=== PATIENT | male | born 1980 | race Caucasian/White ===

== ENCOUNTER 2022-10-19 00:12 | Emergency (ER) | payer OTHER ==
[2022-10-19] MEDS ORDERED: Sodium Chloride 0.9% 10 ML Syringe FLUSH PRN (03:33)
[2022-10-19] MEDS ORDERED: Sodium Chloride 0.9% 2.5 ML Syringe FLUSH PRN (03:33)
[2022-10-19] MEDS ORDERED: HYDROmorphone 2 MG/ML Syringe IVPUSH ONE (03:35)
[2022-10-19] MEDS ORDERED: Ketorolac 30 MG/ML SDV IVPUSH ONE (03:36)
[2022-10-19] MEDS ORDERED: Ondansetron 4 MG/2 ML SDV IVPUSH ONE (03:36)
[2022-10-19 04:38] LABS: CARBON DIOXIDE,CO2 26.8 mmol/L (21.0-32.0); POTASSIUM,K 4.1 mmol/L (3.5-5.1)
[2022-10-19] MEDS ORDERED: Piperacillin/Tazobactam 4.5 GM in Sodium Chloride 0.9% 100 ML IV ONE (05:43)
== END 2022-10-19 09:36 | disposition home or self-care (01) ==
LOC: MW.ED 00:12
DX: K81.0 Acute cholecystitis (principal)
CPT/HCPCS: 36415; 74176; 76705; 80053; 83690; 85025; 96365; 96375; 99285; J1170; J1885; J2405; J2543; J3490; J7050

== ENCOUNTER 2022-10-26 09:25 | Day surgery (SDC) | payer OTHER ==
[~2022-10-26 09:25] MED LIST: Albuterol 0.083% 2.5 MG/3 ML Neb Soln NEB PRN; HYDROmorphone 1 MG/ML Syringe IVPUSH PRN; Lactated Ringers 1,000 ML IV SCH; Metoclopramide 10 MG/2 ML SDV IVPUSH PRN; Morphine 2 MG/ML SYRINGE IVPUSH PRN; Naloxone 0.4 MG/ML SDV IVPUSH PRN; Ondansetron 4 MG/2 ML SDV IVPUSH PRN; Scopolamine 1.5 MG Transdermal Patch TOP ONE; cefOXitin 2 GM in Premix Bag 1 BAG IV ONE; fentaNYL 50 MCG/ML SDV IVPUSH PRN
[2022-10-26] MEDS ORDERED: Bupivacaine 0.25% 30 ML SDV ONE (10:13)
[2022-10-26] MEDS ORDERED: Ropivacaine 0.5% 5 MG/ML 30 ML SDV ONE (10:13)
[2022-10-26] MEDS ORDERED: Famotidine 20 MG/2 ML SDV ONE (10:13)
[2022-10-26] MEDS ORDERED: Scopolamine 1.5 MG Transdermal Patch ONE (10:16)
[2022-10-26] MEDS ORDERED: Bupivacaine 0.5% 30 ML SDV ONE (10:35)
[2022-10-26] MEDS ORDERED: fentaNYL 250 MCG/5 ML SDV ONE (10:38)
[2022-10-26] MEDS ORDERED: Rocuronium Bromide 50 MG/5 ML Syringe ONE ×2 (10:38→11:51)
[2022-10-26] MEDS ORDERED: Dexamethasone 4 MG/ML 5 ML MDV ONE (10:38)
[2022-10-26] MEDS ORDERED: Propofol 200 MG/20 ML SDV ONE (10:38)
[2022-10-26] MEDS ORDERED: Ketorolac 30 MG/ML SDV ONE (10:38)
[2022-10-26] MEDS ORDERED: Ondansetron 4 MG/2 ML SDV ONE (10:38)
[2022-10-26] MEDS ORDERED: Dexmedetomidine 200 MCG/2 ML SDV ONE (10:38)
[2022-10-26] MEDS ORDERED: Lidocaine 2% 5 ML SDV ONE (10:38)
[2022-10-26] MEDS ORDERED: Sugammadex Sodium 200 MG/2 ML VIAL ONE (10:38)
[2022-10-26] MEDS ORDERED: cefOXitin 1 GM Vial ONE (10:38)
[2022-10-26] MEDS ORDERED: Water For Injection, Sterile 20 ML ONE ×2 (10:39)
[2022-10-26] MEDS ORDERED: Acetaminophen/HYDROcodone 325-5 MG Tab PO PRN (12:39)
[2022-10-26] MEDS ORDERED: Morphine 4 MG/ML Syringe IVPUSH PRN (12:39)
[2022-10-26] MEDS ORDERED: Lactated Ringers 1,000 ML IV SCH (12:45)
== END 2022-10-26 14:25 | disposition home or self-care (01) ==
LOC: MW.SDS 09:25
PROVIDERS: ATTEND Surgery
DX: K80.10 Calculus of gallbladder with chronic cholecystitis without obstruction (principal); K90.49 Malabsorption due to intolerance, not elsewhere classified; I10 Essential (primary) hypertension; K21.9 Gastro-esophageal reflux disease without esophagitis; F17.210 Nicotine dependence, cigarettes, uncomplicated; Z79.899 Other long term (current) drug therapy; Z83.79 Family history of other diseases of the digestive system
CPT/HCPCS: 47562; A9270; J0131; J0694; J1100; J1170; J1885; J2405; J2704; J2795; J3010; J3490; J7120; 00790; 64488

== ENCOUNTER 2022-12-10 10:11 | Emergency (ER) | payer OTHER ==
[2022-12-10] MEDS ORDERED: Sodium Chloride 0.9% 1,000 ML IV ONE (10:29)
[2022-12-10] MEDS ORDERED: Alum Hydro/Mag Hydro/Simeth XS 15 ML, Lidocaine 2% 5 ML PO ONE ×2 (10:32)
[2022-12-10] MEDS ORDERED: Famotidine 20 MG/2 ML SDV IVPUSH ONE (10:32)
[2022-12-10 11:10] LABS: CARBON DIOXIDE,CO2 27.6 mmol/L (21.0-32.0); POTASSIUM,K 3.9 mmol/L (3.5-5.1)
[2022-12-10] MEDS ORDERED: Iopamidol 755 MG/ML 500 ML Multipack Bottle IVPUSH ONE (11:35)
== END 2022-12-10 13:12 | disposition home or self-care (01) ==
LOC: MW.ED 10:11
DX: K21.9 Gastro-esophageal reflux disease without esophagitis (principal); R74.01 Elevation of levels of liver transaminase levels; I10 Essential (primary) hypertension; Z79.899 Other long term (current) drug therapy; Z90.49 Acquired absence of other specified parts of digestive tract; Z72.0 Tobacco use
CPT/HCPCS: 36415; 74177; 80053; 83690; 83735; 85025; 96361; 96374; 99284; A9270; J3490; J7030; Q9967

== ENCOUNTER 2023-01-08 08:22 | Day surgery (SDC) | payer OTHER, BC ==
[~2023-01-08 08:22] MED LIST changes: -Albuterol 0.083% 2.5 MG/3 ML Neb Soln NEB PRN; -HYDROmorphone 1 MG/ML Syringe IVPUSH PRN; -Metoclopramide 10 MG/2 ML SDV IVPUSH PRN; +Midazolam 1 MG/ML 2 ML SDV ONE; -Morphine 2 MG/ML SYRINGE IVPUSH PRN; -Naloxone 0.4 MG/ML SDV IVPUSH PRN; -Ondansetron 4 MG/2 ML SDV IVPUSH PRN; +Propofol 200 MG/20 ML SDV ONE; -Scopolamine 1.5 MG Transdermal Patch TOP ONE; -cefOXitin 2 GM in Premix Bag 1 BAG IV ONE; -fentaNYL 50 MCG/ML SDV IVPUSH PRN
[2023-01-08] MEDS ORDERED: Propofol 200 MG/20 ML SDV ONE (10:16)
== END 2023-01-08 11:22 | disposition home or self-care (01) ==
LOC: MW.SDS 08:22
PROVIDERS: ATTEND Surgery
DX: K29.50 Unspecified chronic gastritis without bleeding (principal); K31.7 Polyp of stomach and duodenum; K31.A11 Gastric intestinal metaplasia without dysplasia, involving the antrum; K22.89 Other specified disease of esophagus; K21.9 Gastro-esophageal reflux disease without esophagitis; I10 Essential (primary) hypertension; F17.210 Nicotine dependence, cigarettes, uncomplicated; Z79.899 Other long term (current) drug therapy; Z90.49 Acquired absence of other specified parts of digestive tract
CPT/HCPCS: 43239; J2250; J2704; J7120

== ENCOUNTER 2023-01-11 08:59 | Inpatient (IN) | payer OTHER, BC ==
[2023-01-11] MEDS ORDERED: Sodium Chloride 0.9% 2.5 ML Syringe FLUSH PRN (09:09)
[2023-01-11] MEDS ORDERED: Sodium Chloride 0.9% 10 ML Syringe FLUSH PRN (09:09)
[2023-01-11] MEDS ORDERED: Morphine 4 MG/ML Syringe IVPUSH ONE ×2 (09:16→15:58)
[2023-01-11] MEDS ORDERED: Sodium Chloride 0.9% 1,000 ML IV ONE (09:17)
[2023-01-11 09:27] LABS: BASOPHILS PERCENT AUTO 0.3 % (0.0-1.5); EOSINOPHILS ABSOLUTE AUTO 0.1 K/uL (0.0-0.7); EOSINOPHILS PERCENT AUTO 0.7 % (0.0-7.0); HEMATOCRIT 51.5 % (38.0-50.0); HEMOGLOBIN 18.8 g/dL (13.0-17.0); LYMPHOCYTES ABSOLUTE AUTO 0.5 K/uL (0.6-2.4); MEAN CORPUSCULAR HEMOGLOBIN 30.7 pg (27.0-32.0); MEAN CORPUSCULAR HGB CONC 36.5 g/dL (31.0-37.0); MONOCYTES ABSOLUTE AUTO 0.8 K/uL (0.0-0.8); MONOCYTES PERCENT AUTO 9.5 % (0.0-15.0); NEUTROPHILS ABSOLUTE AUTO 7.2 K/uL (1.4-5.7); NEUTROPHILS PERCENT AUTO 83.5 % (48.0-80.0); PLATELET COUNT,PLT 227 K/uL (150-400); RED BLOOD CELL COUNT 6.13 M/uL (4.50-5.90); WHITE BLOOD CELL COUNT,WBC 8.65 K/uL (4.0-11.0)
[2023-01-11 09:56] LABS: A/G RATIO 1.1 (0.9-1.6); BILIRUBIN TOTAL 4.7 mg/dL (0.2-1.0); CALCIUM 9.4 mg/dL (8.5-10.1); CREATININE 0.8 mg/dL (0.8-1.3); EST CRCL DRUG DOSING (CG) 122.93 mL/min; POTASSIUM,K 3.9 mmol/L (3.5-5.1); PROTEIN TOTAL,TP 7.5 g/dL (6.4-8.2)
[2023-01-11] MEDS ORDERED: Iopamidol 755 MG/ML 500 ML Multipack Bottle IVPUSH STA (10:07)
[2023-01-11 12:41] LABS: INR 1.07 (0.86-1.11)
[2023-01-11] MEDS: Sodium Chloride 0.9% 1,000 ML IV SCH ×2 (13:41→21:14)
[2023-01-11] MEDS: Pantoprazole 40 MG in Sodium Chloride 0.9% 10 ML IVPUSH SCH (13:41)
[2023-01-11] MEDS ORDERED: LORazepam 1 MG Tab PO PRN (15:02)
[2023-01-11] MEDS: Folic Acid 1 MG Tab PO SCH (15:22)
[2023-01-11] MEDS: Nicotine 21 MG/24 Hr Patch TRDERM SCH (15:52)
[2023-01-11] MEDS ORDERED: Ondansetron 4 MG/2 ML SDV IVPUSH PRN (20:28)
[2023-01-11] MEDS ORDERED: Sodium Chloride 0.65% Nasal Spray 45 ML Bottle NAS PRN (20:28)
[2023-01-11] MEDS ORDERED: Thiamine 100 MG Tab PO SCH (21:00)
[2023-01-11] MEDS: oxyCODONE 5 MG Tab PO PRN (23:45)
[2023-01-12] MEDS: Sodium Chloride 0.9% 1,000 ML IV SCH (04:37)
[2023-01-12 06:07] LABS: BASOPHILS ABSOLUTE AUTO 0.1 K/uL (0.0-0.1); BASOPHILS PERCENT AUTO 0.9 % (0.0-1.5); EOSINOPHILS ABSOLUTE AUTO 0.2 K/uL (0.0-0.7); EOSINOPHILS PERCENT AUTO 3.8 % (0.0-7.0); HEMATOCRIT 46.6 % (38.0-50.0); LYMPHOCYTES ABSOLUTE AUTO 1.1 K/uL (0.6-2.4); LYMPHOCYTES PERCENT AUTO 19.3 % (16.0-40.0); MEAN CORPUSCULAR HEMOGLOBIN 30.8 pg (27.0-32.0); MEAN CORPUSCULAR HGB CONC 36.5 g/dL (31.0-37.0); MEAN CORPUSCULAR VOLUME 84.4 fL (80.0-98.0); MONOCYTES ABSOLUTE AUTO 0.5 K/uL (0.0-0.8); MONOCYTES PERCENT AUTO 8.5 % (0.0-15.0); NEUTROPHILS ABSOLUTE AUTO 3.7 K/uL (1.4-5.7); NEUTROPHILS PERCENT AUTO 67.5 % (48.0-80.0); PLATELET COUNT,PLT 178 K/uL (150-400); RED BLOOD CELL COUNT 5.52 M/uL (4.50-5.90); WHITE BLOOD CELL COUNT,WBC 5.54 K/uL (4.0-11.0)
[2023-01-12 06:30] LABS: ALBUMIN 3.1 g/dL (3.4-5.0); BILIRUBIN TOTAL 1.5 mg/dL (0.2-1.0); CALCIUM 8.3 mg/dL (8.5-10.1); CARBON DIOXIDE,CO2 23.5 mmol/L (21.0-32.0); CREATININE 0.7 mg/dL (0.8-1.3); EST CRCL DRUG DOSING (CG) 144.92 mL/min; POTASSIUM,K 3.4 mmol/L (3.5-5.1); PROTEIN TOTAL,TP 6.2 g/dL (6.4-8.2)
[2023-01-12] MEDS: oxyCODONE 5 MG Tab PO PRN ×3 (07:25→17:00)
[2023-01-12] MEDS ORDERED: Acetaminophen 325 MG Tab PO PRN (08:28)
[2023-01-12] MEDS ORDERED: Sodium Chloride 0.9% 2.5 ML Syringe FLUSH PRN (08:28)
[2023-01-12] MEDS ORDERED: Sodium Chloride 0.9% 10 ML Syringe FLUSH PRN (08:28)
[2023-01-12] MEDS: Nicotine 21 MG/24 Hr Patch TRDERM SCH (08:51)
[2023-01-12] MEDS: Folic Acid 1 MG Tab PO SCH (08:51)
[2023-01-12] MEDS: Pantoprazole 40 MG in Sodium Chloride 0.9% 10 ML IVPUSH SCH (12:16)
[2023-01-12] MEDS ORDERED: Sucralfate Suspension 1 GM/10 ML Cup PO SCH (17:00)
[2023-01-12] MEDS ORDERED: Enoxaparin 40 MG/0.4 ML Syringe SUBCUT SCH (21:15)
[2023-01-14 15:07] LABS: HBSAG SCREEN Negative (Negative); HCV AB Non Reactive (Non Reactive); HEP A AB, IGM Negative (Negative); HEP B CORE AB, IGM Negative (Negative)
== END 2023-01-12 17:00 | DRG 445 ==
LOC: MW.ED 08:59 → MW.MS 12:50
PROVIDERS: ADMIT Internal Medicine; ATTEND Internal Medicine
DX: K80.50 Calculus of bile duct without cholangitis or cholecystitis without obstruction (principal); B17.9 Acute viral hepatitis, unspecified; K29.80 Duodenitis without bleeding; K29.20 Alcoholic gastritis without bleeding; K76.0 Fatty (change of) liver, not elsewhere classified; F10.10 Alcohol abuse, uncomplicated; R74.01 Elevation of levels of liver transaminase levels; K21.9 Gastro-esophageal reflux disease without esophagitis; Z90.49 Acquired absence of other specified parts of digestive tract; Z79.899 Other long term (current) drug therapy
CPT/HCPCS: 36415; 74177; 74177-26; 74181; 74181-26; 76705; 76705-26; 80053; 80074; 80143; 83605; 83690; 85025; 85610; 93005; 93010; 96361; 96374; 96375; 99222; 99239; 99283; 99285-25; A9270-GY; C9113; J2270; J3490; J7030; Q9967